=== PATIENT | male | born 1970 | race Caucasian/White ===

== ENCOUNTER → 2017-01-07 | Outpatient (CLI) | payer MEDICARE, OTHER ==
[~2017-01-07] MED LIST: ACETAMINOPHEN PO; ACETAMINOPHEN325 MG PO; ADVAIR 100-501 EAC1 IH; ASPIRIN ENTERI325 M1 PO; ASPIRIN325 M1 PO; ASPIRIN81 M1; ASPIRIN81 M1 PO; ATRAC-TAIN142 GM EXT; AUGMENTIN PO; BACTRIM 400-801 TA1 PO; BACTRIM DS TABL1 TA1 PO; BENADRYL25 M1 PO; CALCIUM ACETAT667 M1 PO; CLEOCIN PO; CLINDAMYCIN HC300 MG PO; CLONAZEPAM0.5 MG PO; CLONIDINE1 EAC1 TD; COMBIVENT INH14.7 G1 IH; COMBIVENT INH14.7 GM INH; COMBIVENT14.7 GM INH; COMPAZINE5 MG PO; COREG CR80 MG PO; DOMEBORO PACKET1 PKT; DOXYCYCLINE HY100 M3 PO; DOXYCYCLINE150 MG PO; EFFEXOR XR75 MG PO; ERYTHROMYCIN PO; FLEXERIL10 MG PO; FUROSEMIDE40 MG PO; GLIPIZIDE10 MG PO; GLUCOPHAGE500 M1 PO; GLUCOTROL PO; HYDROCHLOROTHIA25 MG PO; HYDROCODON-ACE1 EAC9 PO; K-DUR10 MEQ; K-DUR10 MEQ PO; KCL PO; KEFLEX500 M1 PO; LAC-HYDRIN225 GM TOP; LANTUS100 U/M1 SQ; LANTUS100 U/ML SUBQ; LANTUS100 UNITS/ SUBQ; LASIX PO; LISINOPRIL PO; LISINOPRIL20 MG PO; LISINOPRIL30 MG PO; LONITEN10 M1 PO; LOPRESSOR PO; LORTAB 10-5001 EACH PO; LORTAB 5/500 TA1 TA1 PO; LOTRIMIN 1% CR30 GM EXT; METFORMIN HCL500 M1 PO; METFORMIN PO; MILK OF MAGNESIA PO; MINOXIDIL PO; NEPHROCAPS CAPSU1 MG PO; NEURONTIN100 MG PO; NITRODISC0.4 MG SL; NITROGLYCERIN0.4 MG SL; NITROGLYGERIN0.4 MG SL; NITROGYLCERIN SUBLINGUAL; NO MEDICATIONS; NOVOLOG100 U/M1 SQ; NOVOLOG100 U/ML SUBQ; PANTOPRAZOLE SO40 MG PO; PHENERGAN25 MG PO; PRAVACHOL PO; PRAVASTATIN SOD20 MG PO; PRAVASTATIN SOD40 MG PO; PRILOSEC20 M1 PO; PRINIVIL40 MG PO; PROTONIX PO; RENAGEL800 MG PO; SANTYL15 G1 TP; SENSIPAR30 MG PO; SPECTAZOLE15 GM TP; TEMOVATE 0.05%15 GM TOP; TRIDESILON 0.0515 G2 EXT; ULTRAM PO; ZESTRIL5 MG PO; ZYVOX600 MG PO
--- NOTE | ~2017-01-07 | US85 ---
[facility] A Service of [facility] RADIOLOGY TEXT RESULTS PATIENT: LAKSHMI TEMPLE LOCATION: CNIV : 66 UNIT #: [id number] AGE: [address]: Chaya Banks MD SEX: M ORDER DR: [id number] [facility] [address] [place], [place] [address] [id number] O MR#: [id number] Acc #: [id number] NAME: LAKSHMI TEMPLE : 1970 SEX: M STUDY DATE/TIME: 01/07/2017 12:31 UNIT: CNIV ROOM: STUDY DESCRIPTION: LE Veins Unilat or Ltd Stdy Attending Physician: Chaya Banks M.D. Referring Physician: Chaya Banks M.D. Ordering Physician: Chaya Banks M.D. Primary Care Physician: Chaya Banks M.D. MEDICAL IMAGING REPORT This report is preliminary unless electronic signature is present EXAM Left lower extremity venous duplex, 01/07/2017 HISTORY Left lower extremity pain and edema for 1 week. Edema in the calf. Evaluate for deep vein thrombosis. TECHNIQUE Venous ultrasound examination of the left lower extremity was performed using grayscale, spectral Doppler and color flow Doppler imaging. FINDINGS The examination is negative. There is no evidence of left lower extremity deep venous thrombus from the groin to the lower calf. Visualized greater saphenous vein is also patent. IMPRESSION Negative examination. No evidence of left lower extremity deep venous thrombosis. Dictated by... Baljit Summers M.D. THIS IS AN ELECTRONICALLY VERIFIED REPORT Baljit Summers M.D. at 01/07/2017 5:14 PM LESLEY/matt TD: 01/07/2017 14:04 JOB #: [id number] MEDICAL IMAGING REPORT [facility] A Service of [facility] & [facility] RADIOLOGY TEXT RESULTS PATIENT: LAKSHMI TEMPLE LOCATION: CNIV : 66 UNIT #: [id number] AGE: [address]: Chaya Banks MD SEX: M ORDER DR: Page 1 of 1 COPY
--- NOTE | ~2017-01-07 | US49 ---
[facility] A Service of [facility] & [facility] RADIOLOGY TEXT RESULTS PATIENT: LAKSHMI TEMPLE LOCATION: CNIV : [birth year] UNIT #: [id number] AGE: [address]: Chaya Banks MD SEX: M ORDER DR: [id number] [facility] [address] [place], [place] [address] [id number] O MR#: [id number] Acc #: [id number] NAME: LAKSHMI TEMPLE : 1970 SEX: M STUDY DATE/TIME: 01/07/2017 12:24 UNIT: CNIV ROOM: STUDY DESCRIPTION: US Extremity Non Vasc Complete Attending Physician: Chaya Banks M.D. Referring Physician: Chaya Banks M.D. Ordering Physician: Chaya Banks M.D. Primary Care Physician: Chaya Banks M.D. MEDICAL IMAGING REPORT This report is preliminary unless electronic signature is present EXAM Ultrasound extremity nonvascular, complete, 01/07/2017. HISTORY Cyst left thigh. Left lateral distal thigh knot, palpable area 40 years. Increase in size. Patient states knot since age 12. Left lower extremity swelling x1 week, intermittent, hypertension. FINDINGS Real time ultrasonography of the area of palpable abnormality lateral aspect distal left thigh shows a heterogeneous mass in the subcutaneous fat measuring 4.52 cm x 3.93 cm x 5.56 cm. It is heterogeneous in appearance, predominately relatively hyperechoic. It may contain fat. There are hypoechoic potentially cystic areas and there are small hyperechoic presumed calcifications. The appearance is nonspecific. Given reported change in size and development of pain, further evaluation with cross-sectional imaging such as CT or MRI may be useful. This mass is amenable to percutaneous sampling if it would assist in management at this time. IMPRESSION Indeterminate mass in the subcutaneous tissues of the lateral distal left thigh in area of palpable abnormality indicated by patient. It measures up to 5.56 cm in diameter. It is well circumscribed. Of relatively increased echogenicity overall, suggesting some possible fatty component. There are focal areas of height hypoechogenicity which could represent some areas of cystic change. These are small and the mass is predominately solid. There are small calcifications. There is no significant internal vascularity. The nature of this mass is unclear on basis of this examination alone. Benign and malignant etiologies could be considered. Given stated increase in size and pain, it should be viewed with some suspicion. It could be further characterized on imaging basis with CT or MRI. It is amenable to percutaneous sampling if it would STS. [facility] A Service of [facility] RADIOLOGY TEXT RESULTS PATIENT: LAKSHMI TEMPLE LOCATION: [facility] : [birth year] UNIT #: [id number] AGE: [address]: Chaya Banks MD SEX: M ORDER DR: assist in management. Dictated by... Calvin iDaz M.D. THIS IS AN ELECTRONICALLY VERIFIED REPORT Calvin Diaz M.D. at 01/13/2017 10:14 AM APRIL/lance TD: 01/08/2017 12:44 JOB #: [id number] MEDICAL IMAGING REPORT Page 1 of 1 COPY
== END | disposition home or self-care (01) ==
LOC: CNIV 11:54
DX: M79.89 Other specified soft tissue disorders (principal); R22.42 Localized swelling, mass and lump, left lower limb; M79.605 Pain in left leg; L72.9 Follicular cyst of the skin and subcutaneous tissue, unspecified; R93.6 Abnormal findings on diagnostic imaging of limbs
CPT/HCPCS: 76881; 93971

== ENCOUNTER → 2017-02-19 | Outpatient (CLI) | payer MEDICARE, OTHER ==
--- NOTE | ~2017-02-19 | EKG ---
PATIENT: LAKSHMI TEMPLE UNIT #: [id number] Ventricular Rate: 71 BPM Atrial Rate: 71 BPM P-R Interval: 110 ms QRS Duration: 86 ms Q-T Interval: 392 ms QTC Calculation(Bezet): 425 ms P [place]: 12 degrees Calculated R [place]: 29 degrees Calculated T [place]: 27 degrees Diagnosis Line: Sinus rhythm with short NM Diagnosis Line: Otherwise normal ECG Diagnosis Line: When compared with ECG of 24-MAY-2012 06:21, Diagnosis Line: NM interval has decreased Diagnosis Line: Confirmed by COOPER COLEMAN MD ([id number]) on Diagnosis Line: 02/19/2017 2:47:28 PM INTERPRETING MD: JARED MIGUEL
[2017-02-19 12:58] LABS: BUN/CREATININE RATIO 18.88; CREATININE SERUM 0.9 mg/dL (0.6-1.4); GLOM FILT RATE Estimated 100.6 mL/min (>60); POTASSIUM 4.5 mmol/L (3.5-5.1)
== END | disposition home or self-care (01) ==
LOC: CAMB 10:46
PROVIDERS: Surgery
DX: Z01.818 Encounter for other preprocedural examination (principal); R22.42 Localized swelling, mass and lump, left lower limb
CPT/HCPCS: 36415; 80048; 93005

== ENCOUNTER → 2017-02-26 | Day surgery (SDC) | payer MEDICARE, OTHER ==
--- NOTE | ~2017-02-26 | OR ---
Unit #: [id number] #: [id number] Patient: LAKSHMI TEMPLE [id number] [address] [place], [place] [address] [id number] O MR#: [id number] NAME: LAKSHMI TEMPLE ROOM: Date of Procedure: 02/26/2017 Admission Date: 02/26/2017 Surgeon: Steve Hernandez Jr., M.D. : 1970 Attending Physician: Steve Hernandez Jr., M.D. Primary Care Physician: Chaya Banks M.D. OPERATIVE REPORT INDICATIONS FOR PROCEDURE The patient is a 46-year-old white male, who recently presented to the office complaining of a large mass on a lateral aspect of the left thigh distally. This has been there for some time and enlarging in size. He desired removal of it and he is brought in this time for removal of this under general anesthesia. The patient understands the procedure including the risks, including that of recurrence, infection, poor healing, and consents. PREOPERATIVE DIAGNOSIS Large 8 to 10 cm mass of the left lateral thigh distally. POSTOPERATIVE DIAGNOSIS Large 8 to 10 cm mass of the left lateral thigh distally noting probable lipomatous mass. ANESTHESIA General with LMA and 0.5% Marcaine with epinephrine locally. PROCEDURE PERFORMED Excision of large mass of the left lateral thigh. DESCRIPTION OF PROCEDURE The patient was positioned in the supine position. After being anesthetized, he was prepped and draped in routine fashion for removal of this large mass of the left lateral thigh. An elliptical incision was made around the skin with these mass being totally excised down to the deeper subcutaneous tissue with a #10-blade scalpel. Several varicose veins were ligated with 2-0 Vicryl sutures and divided. The mass was completely removed with a #10-blade scalpel from the fascia of the muscle beneath it. After it was completely removed, it was sent to pathology. Hemostasis was achieved with Bovie cautery. The deeper tissue was approximated with interrupted 3-0 Vicryl sutures. Skin edges approximated with stainless-steel skin clips as well as interrupted 2-0 nylon mattress stitches. Ointment and sterile dressing were applied externally. Estimated blood loss minimal, less than 20 mL. The patient received less than 1000 mL of crystalloid solution during the procedure. Sponges and instrument counts were correct x3. No drains used. No complications. The patient was taken to the recovery room with stable vital signs in satisfactory condition. Unit #: [id number] #: [id number] Patient: LAKSHMI TEMPLE Dictated by... Steve Hernandez Jr., M.Jennifer. ABDULKADIR/jay TD: 02/26/2017 09:04 JOB #: [id number] OPERATIVE REPORT Page 1 of 1 X Steve Hernandez MD X PROCEDURE OPERATIVE NOTE
== END | disposition home or self-care (01) ==
LOC: CSUR 05:40
DX: L72.0 Epidermal cyst (principal); L08.9 Local infection of the skin and subcutaneous tissue, unspecified; I25.10 Atherosclerotic heart disease of native coronary artery without angina pectoris; I11.0 Hypertensive heart disease with heart failure; I50.9 Heart failure, unspecified; E11.9 Type 2 diabetes mellitus without complications; K21.9 Gastro-esophageal reflux disease without esophagitis; J44.9 Chronic obstructive pulmonary disease, unspecified; E78.5 Hyperlipidemia, unspecified; G47.30 Sleep apnea, unspecified; M19.90 Unspecified osteoarthritis, unspecified site; Z79.82 Long term (current) use of aspirin; Z79.899 Other long term (current) drug therapy; Z98.890 Other specified postprocedural states
CPT/HCPCS: 82947; 88304; J0690; J2250; J2405; J3010

== ENCOUNTER 2017-03-07 17:25 | Emergency (ER) | payer MEDICARE, OTHER ==
[~2017-03-07] VITALS: Ht 180.3 cm; Wt 129.3 kg
[2017-03-07 18:10] LABS: BASOPHIL% 0.2 % (0-2.5); EOSINOPHIL# 0.2 X10e3 (0-0.7); HEMOGLOBIN 13.9 gm/dL (13.0-16.0); LYMPHOCYTE# 1.7 X10e3 (1.0-3.5); LYMPHOCYTE% 19.5 % (17.0-45.0); MEAN CELL VOLUME 82.5 FL (83-96); MEAN CORPUSCULAR HEMOGLOBIN 27.2 PG (28-34); MEAN PLATELET VOLUME 9.4 FL (6.5-11.5); MONOCYTE# 0.5 X10e3 (0-1.0); MONOCYTE% 6.1 % (3.0-12.0); NEUTROPHIL# 6.3 X10e3 (1.5-7.1); NEUTROPHIL% 72.2 % (40-75); PLATELET COUNT 132 X10e3 (140-420); RED BLOOD COUNT 5.09 X10e (3.90-5.60); RED CELL DISTRIBUTION WIDTH 15.4 % (11.0-15.5); WHITE BLOOD COUNT 8.8 X10e3 (4.0-10.5)
[2017-03-07 18:11] LABS: DIFF IND NO
[2017-03-07 18:32] LABS: ALBUMIN SERUM 3.7 g/dL (3.5-5.0); BILIRUBIN,TOTAL 0.8 mg/dL (0.2-2.0); BUN/CREATININE RATIO 24.44; CALCIUM SERUM 8.7 mg/dL (8.4-10.2); CREATININE SERUM 0.9 mg/dL (0.6-1.4); GLOM FILT RATE Estimated 100.6 mL/min (>60); POTASSIUM 3.7 mmol/L (3.5-5.1); PROTEIN TOTAL SERUM 7.1 g/dL (6.0-8.3)
== END 2017-03-07 21:25 | disposition home or self-care (01) ==
LOC: CED 17:25
PROVIDERS: Emergency Medicine
DX: T81.31XA Disruption of external operation (surgical) wound, not elsewhere classified, initial encounter (principal); T81.4XXA Infection following a procedure, initial encounter; E11.65 Type 2 diabetes mellitus with hyperglycemia; J44.9 Chronic obstructive pulmonary disease, unspecified; K21.9 Gastro-esophageal reflux disease without esophagitis; F17.200 Nicotine dependence, unspecified, uncomplicated
CPT/HCPCS: 80053; 85025; 96365; 99283; J3370

== ENCOUNTER 2017-03-13 23:56 | Emergency (ER) | payer MEDICARE, OTHER ==
[~2017-03-13] VITALS: Ht 180.3 cm; Wt 127.0 kg
== END 2017-03-14 00:38 | disposition left against medical advice (07) ==
LOC: CED 23:56
DX: Z53.21 Procedure and treatment not carried out due to patient leaving prior to being seen by health care provider (principal)